=== PATIENT | female | born 2000 | race Caucasian/White ===

== ENCOUNTER 2022-02-20 14:22 | Outpatient (CLI) | payer BC, SELFPAY ==
[2022-02-20 18:49] LABS: Kit Draw Collected
== END 2022-02-20 14:23 | disposition home or self-care (01) ==
LOC: ANHGOSHLAB 14:23
PROVIDERS: PCP Family Medicine; Visit Provider Family Medicine
DX: F32.9 Major depressive disorder, single episode, unspecified (principal); G47.00 Insomnia, unspecified; N93.9 Abnormal uterine and vaginal bleeding, unspecified; F41.9 Anxiety disorder, unspecified; Z79.899 Other long term (current) drug therapy
CPT/HCPCS: 36415

== ENCOUNTER 2022-07-17 10:56 | Outpatient (CLI) | payer BC, SELFPAY ==
[2022-07-17 12:11] LABS: Basophils Percent Auto 0.6 % (0.2-1.2); Eosinophils Absolute Auto 0.1 K/mm3 (0-0.3); Eosinophils Percent Auto 2.1 % (0-4.4); Hematocrit 40.7 % (37.0-47.0); Hemoglobin 13.5 g/dL (12.0-15.0); Lymphocytes Absolute Auto 1.79 K/mm3 (0.9-3.2); Lymphocytes Percent Auto 37.1 % (18.3-44.2); Mean Corpuscular HGB Conc 33.2 g/dl (32-36); Mean Corpuscular Volume 93.3 fl (80-100); Mean Platelet Volume 9.4 fl (7.4-10.4); Monocytes Absolute Auto 0.3 K/mm3 (0.1-0.6); Neutrophils Absolute Auto 2.6 K/mm3 (1.3-6.7); Neutrophils Percent Auto 54.2 % (45.5-73.1); Platelet Count Result 319 k/mm3 (150-375); Red Blood Count 4.36 M/mm3 (4.2-5.4); White Blood Count 4.8 K/mm3 (4.5-10.0)
[2022-07-17 12:19] LABS: Magnesium 2.2 mg/dL (1.6-2.3); Potassium 4.4 mmol/L (3.4-5.0)
== END 2022-07-17 10:57 | disposition home or self-care (01) ==
LOC: ANHGOSHLAB 10:57
PROVIDERS: PCP Family Medicine; Visit Provider Nurse Practitioner Family
DX: R00.2 Palpitations (principal); Z13.29 Encounter for screening for other suspected endocrine disorder
CPT/HCPCS: 36415; 83735; 84132; 84443; 85025

== ENCOUNTER 2022-08-08 09:30 | Outpatient (CLI) | payer BC, SELFPAY ==
--- NOTE | 2022-08-08 09:34 | ECHO_ITS ---
Patient Info Name: Ruma Song Age: 22 years : 2000 Gender: Female Ht: 68 in Wt: 145 lbs BSA: 1.78 m2 HR: 87 bpm BP: 118 / 84 mmHg Heart Rhythm: Sinus Rhythm Technical Quality: Good Exam Date: 08/08/2022 10:02 AM Exam Location: [facility] Pulmonary Patient Status: Outpatient Admit Date: 08/08/2022 Staff Ordering Physician: Gretchen Stewart APRN Personal Lines Insurance Agent: Martinez Ramon RDCS Attending Provider: Gretchen Stewart APRN Referring Physician: Pat MELVIN; Exam Type: CA echo doppler color flow Study Info Indications - palpatation Complete two-dimensional, color flow and Doppler transthoracic echocardiogram is performed. Summary 1. Complete two-dimensional, color flow and Doppler transthoracic echocardiogram is performed. 2. Left ventricular chamber dimension is normal. 3. Left ventricular systolic function is normal, estimated at 60-65%. 4. The left ventricular diastolic function is normal. 5. No pulmonary hypertension, estimated pulmonary arterial systolic pressure is 9 mmHg. Left Ventricle Left ventricular chamber dimension is normal. Left ventricular systolic function is normal, estimated at 60-65%. The left ventricular diastolic function is normal. Right Ventricle Right ventricular chamber dimension is normal. Right ventricular systolic function is normal. Left Atria Left atrial chamber dimension is normal. Right Atria Right atrial chamber dimension is normal. Aortic Valve The aortic valve is trileaflet. There is no aortic valve stenosis. There is no aortic valve regurgitation. Pulmonic Valve There is no pulmonic regurgitation. Mitral Valve There is no mitral valve stenosis. There is no mitral valve regurgitation. Tricuspid Valve There is no tricuspid valve regurgitation. No pulmonary hypertension, estimated pulmonary arterial systolic pressure is 9 mmHg. Pericardium/Pleural There is no pericardial effusion. Inferior Vena Cava Normal inferior vena cava with >50% collapse upon inspiration consistent with normal right atrial pressure, 5 mmHg. Aorta The aortic root size at the sinus of Valsalva is normal. Left Ventricular Outflow Tract Name Value Normal LVOT 2D LVOT Diameter 1.7 cm LVOT Doppler LVOT Peak Gradient 3 mmHg LVOT Mean Gradient 2 mmHg LVOT VTI 20 cm LVOT VTI/AV VTI Ratio 0.9 LVOT Stroke Volume 46 ml LVOT CO 3.2 l/min LVOT CI 1.8 l/min/m2 Pulmonic Valve Name Value Normal RVOT Doppler RVOT Peak Gradient 2 mmHg PV Doppler PV Peak Gradient 3 mmHg Mitral Valve Name V
== END 2022-08-08 09:31 | disposition home or self-care (01) ==
LOC: ANHCARD 09:32
PROVIDERS: PCP Family Medicine; Visit Provider Nurse Practitioner Family
DX: R00.2 Palpitations (principal)
CPT/HCPCS: 93306

== ENCOUNTER 2023-04-30 11:41 | Outpatient (CLI) | payer BC, SELFPAY ==
--- NOTE | ~2023-04-30 | XR_ITS ---
Right Shoulder Technique: AP and scapular Y views were obtained. Clinical History: Pain Findings: No fracture or dislocation is seen. Osseous alignment is anatomic. The glenohumeral and acr omioclavicular joint spaces are preserved. Soft tissues are unremarkable. Impression: Unremarkable right shoulder radiographs. Reviewed, dictated and finalized at [facility]. Impression: Unremarkable right shoulder radiographs.
--- NOTE | ~2023-04-30 | XR_ITS ---
Right elbow Technique: AP and lateral views were obtained. Clinical History: Pain Findings: No acute fracture or dislocation is seen. Osseous alignment is anatomic. Joint spaces are p reserved. There is no displacement of the fat pads, and soft tissues are unremarkable. Impression: Unremarkable radiographs. Reviewed, dictated and finalized at location . Impression: Unremarkable radiographs.
== END 2023-04-30 11:42 ==
PROVIDERS: PCP Family Medicine; Visit Provider Nurse Practitioner Family
DX: M25.511 Pain in right shoulder (principal); M25.521 Pain in right elbow; W19.XXXA Unspecified fall, initial encounter
CPT/HCPCS: 73030; 73070

== ENCOUNTER 2023-06-09 15:48 | Outpatient (CLI) | payer BC, SELFPAY ==
[2023-06-09 19:19] LABS: Hematocrit 40.6 % (37.0-47.0); Hemoglobin 13.4 g/dL (12.0-15.0); Mean Corpuscular Hemoglobin 31.5 pg (26-34); Mean Corpuscular Volume 95.5 fl (80-100); Mean Platelet Volume 9.6 fl (7.4-10.4); Platelet Count Result 396 k/mm3 (150-375); Red Blood Count 4.25 M/mm3 (4.2-5.4); White Blood Count 7.8 K/mm3 (4.5-10.0)
== END 2023-06-09 15:49 | disposition home or self-care (01) ==
LOC: ANHGOSHLAB 15:50
PROVIDERS: PCP Family Medicine; Visit Provider Nurse Practitioner
DX: R59.1 Generalized enlarged lymph nodes (principal)
CPT/HCPCS: 36415; 85027

== ENCOUNTER 2023-06-16 13:18 | Outpatient (CLI) | payer BC, SELFPAY ==
--- NOTE | ~2023-06-16 | US_ITS ---
EXAMINATION: US soft tissue head and neck DATE: 06/16/2023 13:29 INDICATION: Right neck lump. TECHNIQUE: Multiple grayscale and Doppler ultrasound images of the head and neck were obtained. COMPARISON: None FINDINGS: There are normal lymph nodes in the patient's area of concern in right neck. IMPRESSION: 1. No abnormal mass or lymphadenopathy in the patient's area of concern in right neck. Reviewed, dictated and finalized at location A. IMPRESSION: 1. No abnormal mass or lymphadenopathy in the patient's area of concern in righ t neck.
== END 2023-06-16 13:19 ==
LOC: GOSHIMG 13:19
PROVIDERS: PCP Family Medicine; Visit Provider Nurse Practitioner
DX: R59.1 Generalized enlarged lymph nodes (principal)
CPT/HCPCS: 76536

== ENCOUNTER 2023-07-12 13:54 | Outpatient (CLI) | payer BC, SELFPAY ==
[2023-07-12 19:53] LABS: Hepatitis B Surface Antigen Negative (Negative)
[2023-07-12 20:11] LABS: Hepatitis C Virus Antibody Negative (Negative)
[2023-07-12 20:15] LABS: HIV 1/2 Ab P24 Ag Result Negative (Negative)
== END 2023-07-12 13:55 | disposition home or self-care (01) ==
LOC: ANHGOSHLAB 13:58
PROVIDERS: PCP Family Medicine
DX: Z11.4 Encounter for screening for human immunodeficiency virus [HIV] (principal)
CPT/HCPCS: 36415; 86703; 86803; 87340; G0432

== ENCOUNTER 2023-10-22 09:24 | Outpatient (CLI) | payer BC, SELFPAY ==
[2023-10-22 15:39] LABS: Hemoglobin 13.6 g/dL (12.0-15.0); Mean Corpuscular HGB Conc 33.2 g/dl (32-36); Mean Corpuscular Hemoglobin 32.5 pg (26-34); Mean Corpuscular Volume 97.9 fl (80-100); Mean Platelet Volume 10.3 fl (7.4-10.4); Platelet Count Result 366 k/mm3 (150-375); Red Blood Count 4.19 M/mm3 (4.2-5.4); Red Cell Distribution Width 12.3 % (11.5-14.5); White Blood Count 4.5 K/mm3 (4.5-10.0)
[2023-10-22 16:08] LABS: Vitamin D 25 Hydroxy 33.4 ng/mL
[2023-10-22 16:14] LABS: Alanine Aminotransferase 15 U/L (6-35); Albumin Level 4.6 g/dL (3.5-5.1); Alkaline Phosphatase 53 U/L (38-126); Anion Gap 10 mmol/L (4-12); Aspartate Amino Transferase 53 U/L (14-36); Blood Urea Nitrogen 6 mg/dL (7-17); Calcium 9.1 mg/dL (8.4-10.2); Carbon Dioxide 26 mmol/L (22-30); Chloride 102 mmol/L (98-107); Cholesterol 146 mg/dL (0-200); Estimated Glomerular Filt Rate > 60; Glucose 81 mg/dL (65-110); HDL Direct 75 mg/dL; Potassium 4.3 mmol/L (3.4-5.0); Sodium 138 mmol/L (137-145); Triglycerides 40 mg/dL (<150)
[2023-10-22 16:22] LABS: Beta HCG Quantitative < 2.39 mIU/ML
[2023-10-22 16:25] LABS: LDL Cholesterol Direct 56 mg/dL
[2023-10-22 16:42] LABS: Thyroid Stimulating Hormone 0.809 uIU/mL (0.465-4.680)
== END 2023-10-22 09:25 | disposition home or self-care (01) ==
LOC: ANHGOSHLAB 09:29
PROVIDERS: PCP Family Medicine; Visit Provider Nurse Practitioner
DX: R59.1 Generalized enlarged lymph nodes (principal); Z00.00 Encounter for general adult medical examination without abnormal findings; E55.9 Vitamin D deficiency, unspecified
CPT/HCPCS: 36415; 80053; 80061; 82306; 84443; 84702; 85027

== ENCOUNTER 2023-11-03 13:07 | Outpatient (CLI) | payer BC, SELFPAY ==
[2023-11-03 14:32] LABS: Beta HCG Quantitative < 2.39 mIU/ML
== END 2023-11-03 13:08 | disposition home or self-care (01) ==
LOC: ANHGOSHLAB 13:10
PROVIDERS: PCP Family Medicine; Visit Provider Family Medicine
DX: Z32.01 Encounter for pregnancy test, result positive (principal)
CPT/HCPCS: 36415; 84702

== ENCOUNTER 2024-12-06 14:35 | Emergency (ER) | payer BC, SELFPAY ==
--- NOTE | ~2024-12-06 | XR_ITS ---
EXAMINATION: XR chest 2V DATE: 12/06/2024 15:10 INDICATION: Chest pain, tachycardia and numbness extending down the right arm TECHNIQUE: PA and lateral views of the chest were obtained. COMPARISON: None FINDINGS: The lungs are clear with no focal airspace opacities, pulmonary edema, pleural effusion or pneumothorax. The cardiomediastinal silhouette is normal. Visualized bones and soft tissues are unremarkable. IMPRESSION: 1. No acute cardiopulmonary disease. Reviewed, dictated and finalized at location A.
[2024-12-06 14:50] VITALS: BP 152/83; PULSE 115; RESP 16; TEMP 37.4; O2SAT 100
--- NOTE | 2024-12-06 14:52 | ECG_ITS ---
Test Date: 2024-12-06 14:57:04 Measurements Intervals [place] Rate: 110 P: 81 MO: 153 QRS: 78 QRSD: 83 T: -65 QT: 348 QTc: 472 Interpretive Statements SINUS TACHYCARDIA POSSIBLE LEFT ATRIAL ENLARGEMENT POSSIBLE RIGHT VENTRICULAR CONDUCTION DELAY ST-T WAVE ABNORMALITY IN ANTEROLAT/INF LEADS- CONSIDER ISCHEMIA ABNORMAL ECG No previous ECG available for comparison Electronically Signed On 12-06-2024 15:03:47 CDT by Og Evans D.O.
[2024-12-06 15:27] LABS: Hematocrit 37.8 % (37.0-47.0); Hemoglobin 12.9 g/dL (12.0-15.0); Immature Granulocyte Percent A 0.3 % (0-0.5); Lymphocytes Absolute Auto 1.92 K/mm3 (0.9-3.2); Mean Corpuscular HGB Conc 34.1 g/dl (32-36); Mean Corpuscular Hemoglobin 31.4 pg (26-34); Mean Corpuscular Volume 92.0 fl (80-100); Nucleated Red Blood Cells Absolute Auto 0.000 K/mm3 (0.0-0.012); Nucleated Red Blood Cells Perc 0.0 % (0.0-0.2); Platelet Count Result 339 k/mm3 (150-375); Red Blood Count 4.11 M/mm3 (4.2-5.4); White Blood Count 5.8 K/mm3 (4.5-10.0)
[2024-12-06 15:35] LABS: Alanine Aminotransferase 14 U/L (6-35); Albumin Level 4.6 g/dL (3.5-5.1); Alkaline Phosphatase 39 U/L (38-126); Anion Gap 12 mmol/L (4-12); Aspartate Amino Transferase 21 U/L (14-36); Bilirubin,Total 0.9 mg/dL (0.2-1.3); Blood Urea Nitrogen 7 mg/dL (7-17); Calcium 8.5 mg/dL (8.4-10.2); Carbon Dioxide 21 mmol/L (22-30); Chloride 105 mmol/L (98-107); Estimated CRCL calculation 119 ml/min; Estimated Glomerular Filt Rate > 60; Glucose 90 mg/dL (65-110); Lipase 39 U/L (23-300); Potassium 3.4 mmol/L (3.4-5.0); Sodium 138 mmol/L (137-145); Total Protein 7.6 g/dL (6.3-8.2)
[2024-12-06 15:43] LABS: INR 1.2; Partial Thromboplastin Time 24.9 Seconds (22.3-36.8); Prothrombin Time 14.9 Seconds (11.1-14.7)
[2024-12-06 15:46] LABS: Troponin I < 0.012 ng/mL (0.000-0.034)
--- OUTSIDE RECORDS SUMMARY | 2024-12-06 16:28 | XMS_ITS | Clinical Summary ---
Author Organization [facility] Address [address] [place] [address] Care Team Providers Care Bulk Sealer Operator Name Role Phone JackveronicaGloria DO Primary Care Provider [phone] [facility],non-owned Affiliates and Associated Physician Practices is amultiple site organization consisting of ambulatory clinics and hospital sitesin [place], [place], [place] and [place]. This disclosure is being madepursuant to the Care Everywhere program and may not contain all information available regarding this patient. Last updated 17.[facility] Allergies No known active allergies Medications * Be aware that medications may not be up to date on this document. Alwaysverify current medications with the patient. DULoxetine (Cymbalta) 30 MG capsule Take 1 (one) capsule by mouth once daily 90 capsule 1 09/16/2021 Active medroxyPROGESTE Kris (Depo-Provera) 150 MG/ML prefilled syringe INJECT 150 (ONE HUNDRED FIFTY) MG INTO MUSCLE ONCE FOR 1 DOSE 1 mL 2 02/27/2022 Active Active Problems Problem Noted Date Diagnosed Date Anxiety 03/22/2019 Speech delay 03/10/2017 Developmental disorder of speech or language Acne vulgaris 09/12/2014 Immunizations Immunization Administration Dates Next Due DTaP VACCINE IM (6wk-6yrs) 09/02/2007,,03/21/2003,10/17,2002 FLU VACCINE TRI IIV3 SPLIT P F IM (FLUVIRIN) 01/12/2011 HEP A PEDS 2 DOSE 09/12/2014,09/18/2013 HEP B VACCINE, PED/ADOL 03/21/2003,2002, HIB Hep B 03/21/2003,2002,2002 HIB-PRP-T 4 DOSE 09/12/2003, 4,2002,08/15 Human Papilloma Virus Nineva lent Vaccine 03/29/2017,09/03/2016 INFLUENZA VACCINE 01/12/2011 MENINGOCOCCAL ACWY (MCV4P) VAC IM 09/15/2018,12/2013 MMR 09/02/2007,09/12/2003 PNEUMOCOCCAL PCV7 CONJ, PEDS 03/21/2003,10/18/19 03,2002 POLIO IPV 09/12/2014, 4,2002,08/15 POLIO OPV 03/21/2003,2002,2002 TDAP (7yrs+) 09/18/2013 VARICELLA 09/02/2007,09/12/2003 Social History Tobacco Use Types Packs/Day Years Used Date Smoking Tobacco: Never Smokeless Tobacco: Never Alcohol Use Standard Drinks/Week Comments Yes 0 (1 standard drink = 0.6 oz pur e alcohol) occ PHQ-2 Answer Date Recorded PHQ2 TOTAL SCORE 0 09/16/2021 Comments No Sex and Gender Information Value Date Recorded Sex Assigned at Not on file Legal Sex Female 3:07 PM CDT Gender Identity Not on file Sexual Orientation Not on file Occupation Industry Job Start Date Job End Date Student Not on file Not on file Not on file Last Filed Vital Signs Vital Sign Reading Time Taken Comments Blood Pressure 98/72 08/12/2021 12:47 PM CDT Pulse 66 08/12/2021 12:47 PM CDT Temperature 36.1 C (97 F) 08/12/2021 12:47 PM CDT Respiratory Rate 16 04/24/2021 7:39 AM CDT Oxygen Saturation 98% 08/12/2021 12:47 PM CDT Inhaled Oxygen Concentration - - Weight 70.3 kg (155 lb) 09/16/2021 1:43 PM CDT p er pt Height 170.2 cm (5' 7) 09/16/2021 1:43 PM CDT Body Mass Index 24.28 09/16/2021 1:43 PM CDT Plan of Treatment Health Maintenance Due Date Last Done Comments CHLAMYDIA/GONORRHEA SCREENING 2018 MENINGOCOCCAL (Group B) VACCINE SHARED DECISION-MAKING (1 of 2 - Standard) 2018 PAP SMEAR 06/15/2023 DTAP/TDAP/TD VACCINES (7 - Td or Tdap) 09/19/2023 09/18/2013, 09/02/2007, 09/12/2003, Additional history exists DEPRESSION SCREENING 02/09/2024 09/16/2021, 08/12/2021, 09/04/2019 COVID-19 VACCINE ( season) 2024 INFLUENZA VACCINE (#1) 2024 01/12/2011, 2010 ZOSTER VACCINE (1 of 2) 2052 HEPATITIS B VACCINE Completed 03/21/2003, 03/21/2003, 2002, Additional history exists PNEUMOCOCCAL VACCINE Aged Out 03/21/2003, 2002, 2002 No longer eligible based on patient's age to complete this topic HIB VACCINE Completed 09/12/2003, 03/11, 03/21/2003, Additional history exists HPV VACCINE Completed 03/29/2017, 09/03/2016 MENINGOCOCCAL GROUPS A/C/Y/W VACCINE Completed 09/15/2018, 09/18/2013 HEPATITIS C SCREENING Completed 12/23/2020 HIV SCREENING Completed 12/23/2020 Procedures Procedure Name Priority Date/Time Associated Diagnosis Comments HEPATITIS C ANTIBODY RFLX SHANDA Routine 12/23/2020 3:41 PM WINDOWS SECURITY ENGINEER Encounter for hepatitis C screening test for low risk patient HIV-1 HIV-2 ANTIBODY + HIV P24 AG PANEL Routine 12/23/2020 3:41 PM WINDOWS SECURITY ENGINEER Screening for HIV (human immunodeficiency virus) from Last 3 Months or Most Recently Relevant to Health Maintenance Results * HEPATITIS C ANTIBODY RFLX SHANDA (12/23/2020 3:41 PM WINDOWS SECURITY ENGINEER) Hepatitis C Antibody <0.1 0.0 - 0.9 s/co ratio [facility] ACCOUNT BILL Blood BLOOD SPECIMEN / Unknown 12/23/2020 3:41 PM WINDOWS SECURITY ENGINEER 12/23/2020 Narrative Resulting Agency Comment Lab Testing performed at: [facility] [place] [address] [facility] [phone] us Gloria E Oetting DO LAB - SEROLOGY ORDERABLES Fin al Result [facility] ACCOUNT BILL [address] [place] [address] * HIV-1 HIV-2 ANTIBODY + HIV P24 AG PANEL (12/23/2020 3:41 PM WINDOWS SECURITY ENGINEER) HIV Screen 4th Generation w Reflex Non Reactive Non Reactive [facility] ACCOUNT BILL Blood BLOOD SPECIMEN / Unknown 12/23/2020 3:41 PM WINDOWS SECURITY ENGINEER 12/23/2020 Narrative Resulting Agency Comment [facility] performed [facility]: [facility] [address] [place] [id number] us Gloria E Oetting DO LAB - CHEMISTRY ORDERABLES Fi nal Result Performing Organization Address City/[facility] de Phone Number [facility] ACCOUNT BILL [address] [place] [address] from Last 3 Months or Most Recently Relevant to Health Maintenance Insurance [facility] [place] [address] [address] [id number] [place] [address] [id number] ANTHEM Care Teams Bulk Sealer Operator Relationship Specialty Start Date End Date Gloria Lopez DO [address] [place] [address] PCP - General Family Medicine 09/12/14
--- OUTSIDE RECORDS SUMMARY | 2024-12-06 16:28 | XMS_ITS | Patient Health Record ---
Author Organization [facility] Address [address] [facility] [address] [place] [address] Care Team Providers Care Pharmaceutical Compounding Supervisor Name Role Phone Lam Asif Unavailable [phone] Reason For Referral No Information Medications Medication SIG (Take, Route, Frequency, Duration) Notes Start Date End Date Status medroxyPROGESTERone Acetate 150 MG/ML Suspension Prefilled Syringe Intramuscular Active DULoxetine HCl 30 MG Capsule Delayed Release Particles Oral Ac tive Trintellix 5 MG Tablet Oral Active Amoxicillin 500 MG Capsule Oral Active traZODone HCl 50 MG Tablet Oral Active Plan Of Treatment No Information
--- OUTSIDE RECORDS SUMMARY | 2024-12-06 18:13 | XMS_ITS | Clinical Summary ---
Author Organization [facility] Address [address] [place] [address] Care Team Providers Care Science Writer Name Role Phone JackveronicaGloria DO Primary Care Provider [phone] Source Comments [facility],non-owned Affiliates and Associated Physician Practices is amultiple site organization consisting of ambulatory clinics and hospital sitesin [place], [place], [place] and [place]. This disclosure is being madepursuant to the Care Everywhere program and may not contain all information available regarding this patient. Last updated 17.[facility] Allergies No known active allergies Medications * [...] ANTIBODY RFLX SHANDA Routine 12/23/2020 3:41 PM TOBACCO DRYING MACHINE OPERATOR Encounter for hepatitis C screening test for low risk patient HIV-1 HIV-2 ANTIBODY + HIV P24 AG PANEL Routine 12/23/2020 3:41 PM TOBACCO DRYING MACHINE OPERATOR Screening for HIV (human immunodeficiency virus) from Last 3 Months or Most Recently Relevant to Health Maintenance Results * HEPATITIS C ANTIBODY RFLX SHANDA (12/23/2020 3:41 PM TOBACCO DRYING MACHINE OPERATOR) Hepatitis C Antibody <0.1 0.0 - 0.9 s/co ratio [facility] ACCOUNT BILL Blood BLOOD SPECIMEN / Unknown 12/23/2020 3:41 PM TOBACCO DRYING MACHINE OPERATOR 12/23/2020 Narrative Resulting Agency Comment Lab Testing performed at: [facility] [place] [address] [facility] [phone] us Gloria E Oetting DO LAB - SEROLOGY ORDERABLES Fin al Result [facility] ACCOUNT BILL [address] [place] [address] * HIV-1 HIV-2 ANTIBODY + HIV P24 AG PANEL (12/23/2020 3:41 PM TOBACCO DRYING MACHINE OPERATOR) HIV Screen 4th Generation w Reflex Non Reactive Non Reactive [facility] ACCOUNT BILL Blood BLOOD SPECIMEN / Unknown 12/23/2020 3:41 PM TOBACCO DRYING MACHINE OPERATOR 12/23/2020 Narrative Resulting Agency Comment [facility] performed [facility]: [facility] [address] [place] [id number] us Gloria E Oetting DO LAB - CHEMISTRY ORDERABLES Fi nal Result Performing Organization Address City/[facility] de Phone Number [facility] ACCOUNT BILL [address] [place] [address] from Last 3 Months or Most Recently Relevant to Health Maintenance Insurance [facility] [place] [address] [address] [phone] [place] [address] [id number] ANTHEM Care Teams Science Writer Relationship Specialty Start Date End Date Gloria Lopez DO [address] [place] [address] PCP - General Family Medicine 09/12/14
== END 2024-12-06 18:16 | disposition left against medical advice (07) ==
PROVIDERS: Emergency Provider Family Medicine; PCP Family Medicine
DX: R00.0 Tachycardia, unspecified (principal)
CPT/HCPCS: 36415; 71046; 80053; 83690; 84484; 85025; 85380; 85610; 85730; 93005; 99199

== ENCOUNTER 2025-01-10 10:06 | Outpatient (CLI) | payer BC, SELFPAY ==
--- NOTE | 2025-01-10 10:10 | EST_ITS ---
Patient Info Name: Ruma Song Age: 24 years : 2000 Gender: Female Ht: 68 in Wt: 140 lbs BSA: 1.74 m2 HR: 101 bpm BP: 128 / 73 mmHg Exam Date: 01/10/2025 10:10 AM Patient Status: O Admit Date: 01/10/2025 Exam Type: CA stress test treadmill A treadmill exercise stress test was performed. Staff Attending Provider: Og Evans DO Exercise Technologist: Negin Greene Exercise Physician: Og Evans DO Summary 1. 1. Negative Farhat exercise stress test for ischemic ST changes by ECG criteria. 2. 2. Reduced functional capacity, achieving 7 METs of workload. 3. 3. Appropriate HR response to exercise. 4. 4. Appropriate HR recovery at 1 minute post exercise. 5. 5. No imaging with stress testing. 6. 6. Patient informed of the above results. Protocol: Farhat Stress ECG Details Stage: REST Duration (min): 1 min : 10 sec Speed (mph): 0.0 Grade (%): 0 HR (bpm): 101 SBP (mmHg): 128 DBP (mmHg): 73 METS: --- Stage: REST Duration (min): 9 min : 1 sec Speed (mph): 0.0 Grade (%): 0 HR (bpm): 102 SBP (mmHg): 128 DBP (mmHg): 73 METS: --- Stage: STAGE 1 Duration (min): 1 min : 0 sec Speed (mph): 1.7 Grade (%): 10 HR (bpm): 133 SBP (mmHg): 128 DBP (mmHg): 73 METS: --- Stage: STAGE 1 Duration (min): 2 min : 0 sec Speed (mph): 1.7 Grade (%): 10 HR (bpm): 140 SBP (mmHg): 128 DBP (mmHg): 73 METS: --- Stage: STAGE 1 Duration (min): 3 min : 0 sec Speed (mph): 1.7 Grade (%): 10 HR (bpm): 144 SBP (mmHg): 154 DBP (mmHg): 66 METS: --- Stage: STAGE 2 Duration (min): 1 min : 0 sec Speed (mph): 2.5 Grade (%): 12 HR (bpm): 167 SBP (mmHg): 154 DBP (mmHg): 66 METS: --- Stage: STAGE 2 Duration (min): 2 min : 0 sec Speed (mph): 2.5 Grade (%): 12 HR (bpm): 171 SBP (mmHg): 158 DBP (mmHg): 67 METS: --- Stage: STAGE 2 Duration (min): 3 min : 0 sec Speed (mph): 2.5 Grade (%): 12 HR (bpm): 177 SBP (mmHg): 158 DBP (mmHg): 67 METS: --- Stage: RECOVERY Duration (min): 0 min : 59 sec Speed (mph): 0.0 Grade (%): 0 HR (bpm): 140 SBP (mmHg): 187 DBP (mmHg): 70 METS: --- Stage: RECOVERY Duration (min): 1 min : 59 sec Speed (mph): 0.0 Grade (%): 0 HR (bpm): 115 SBP (mmHg): 187 DBP (mmHg): 70 METS: --- Stage: RECOVERY Duration (min): 2 min : 59 sec Speed (mph): 0.0 Grade (%): 0 HR (bpm): 108 SBP (mmHg): 171 DBP (mmHg): 65 METS: --- Stage: RECOVERY Duration (min): 3 min : 59 sec Speed (mph): 0.0 Grade (%): 0 HR (bpm): 92 SBP (mmHg): 171 DBP (mmHg): 65 METS: --- Stage: RECOVERY Duration (min): 4 min : 59 sec Speed (mph): 0.0 Grade (%): 0 HR (bpm): 89 SBP (mmHg): 118 DBP (mmHg): 63 METS: --- Stage: RECOVERY Duration (min): 5 min : 5 sec Speed (mph): 0.0 Grade (%): 0 HR (bpm): 89 SBP (mmHg): 118 DBP (mmHg): 63 METS: --- Rest HR: 102 bpm Peak HR: 177 bpm Rest Sys BP: 128 mmHg Peak Sys BP: 187 mmHg Max Pred HR: 198 bpm % Max Pred HR: 89 % Target HR: 168 bpm Max RPP: 33,099 bpm*mmHg Vargas Score: -2 Termination Reason: Reached target heart rate or workload Cardiac Symptoms: Shortness of breath, Chest pain Max ST Seg Deviation: -1.60 mm Total Time: 6 min : 0 sec Rest Trevino BP: 73 mmHg Peak Trevino BP: 70 mmHg Angina Score: None Total METS: 7.1 Resting ECG Sinus tachycardia with borderline ST-T wave in inferior leads. Stress ECG No ST changes. Arrhythmias None. Report Signatures
--- OUTSIDE RECORDS SUMMARY | 2025-01-10 11:17 | XMS_ITS | Clinical Summary ---
Author Organization [facility] [email or web address] Address [address] [facility] [place] [address] Care Team Providers Care Oncology Social Worker Name Role Phone JackveronicaGloria DO Primary Care Provider [phone] Source Comments [facility] [email or web address],non-owned Affiliates and Associated Physician Practices is amultiple site organization consisting of ambulatory clinics and hospital sitesin [place], [place], [place] and [place]. This disclosure is being madepursuant to the Care Everywhere program and may not contain all information available regarding this patient. Last updated 17.[email or web address] Allergies No known active allergies Medications * [...] ANTIBODY RFLX SHANDA Routine 12/23/2020 3:41 PM HONEY PRODUCER Encounter for hepatitis C screening test for low risk patient HIV-1 HIV-2 ANTIBODY + HIV P24 AG PANEL Routine 12/23/2020 3:41 PM HONEY PRODUCER Screening for HIV (human immunodeficiency virus) from Last 3 Months or Most Recently Relevant to Health Maintenance Results * HEPATITIS C ANTIBODY RFLX SHANDA (12/23/2020 3:41 PM HONEY PRODUCER) Hepatitis C Antibody <0.1 0.0 - 0.9 s/co ratio [facility] ACCOUNT BILL Blood BLOOD SPECIMEN / Unknown 12/23/2020 3:41 PM HONEY PRODUCER 12/23/2020 Narrative Resulting Agency Comment Lab Testing performed at: [facility] [place] [address] [facility] [id number] us Gloria E Oetting DO LAB - SEROLOGY ORDERABLES Fin al Result [facility] ACCOUNT BILL [address] [place] [address] * HIV-1 HIV-2 ANTIBODY + HIV P24 AG PANEL (12/23/2020 3:41 PM HONEY PRODUCER) HIV Screen 4th Generation w Reflex Non Reactive Non Reactive [facility] ACCOUNT BILL Blood BLOOD SPECIMEN / Unknown 12/23/2020 3:41 PM HONEY PRODUCER 12/23/2020 Narrative Resulting Agency Comment [facility]: [facility] [address] [place] [phone] us Gloria E Oetting DO LAB - CHEMISTRY ORDERABLES Fi nal Result Performing Organization Address City/[facility] de Phone Number [facility] ACCOUNT BILL [address] [place] [address] from Last 3 Months or Most Recently Relevant to Health Maintenance Insurance [facility] [place] [address] [address] [phone] [place] [id number] ANTHEM Care Teams Oncology Social Worker Relationship Specialty Start Date End Date Gloria Lopez DO [address] [place] [address] PCP - General Family Medicine 09/12/14
== END 2025-01-10 10:07 | disposition home or self-care (01) ==
PROVIDERS: PCP Family Medicine; Visit Provider Internal Medicine Cardiovascular Disease
DX: R07.9 Chest pain, unspecified (principal)
CPT/HCPCS: 93017